=== PATIENT | male | born 1940 | race Caucasian/White ===

== ENCOUNTER 2017-11-30 10:21 | Inpatient (IN) | payer MEDICARE, OTHER ==
[2017-11-30] MEDS ORDERED: SODIUM CHLORIDE 0.9% 1,000 ML IV STA (10:25)
[2017-11-30] MEDS ORDERED: SODIUM CHLORIDE 0.9% 500 ML IV STA (10:25)
--- NOTE | 2017-11-30 10:28 | ED ---
Altered Mental Status HPI - General Stated Complaint: POSS DEHYDRATION Time Seen by Provider: 11/30/17 10:21 Source: patient, RN/MD, EMS, RN notes reviewed, old records reviewed Mode of arrival: EMS - History of Present Illness Initial Comments: This is a 77-year-old male who was brought in for evaluation for lethargy that apparently did start yesterday to decrease oral intake. Lab work he was found have a BUN of 136 and creatinine of 4.3 which is new for him. No fevers chills sweats no nausea no vomiting diarrhea. Patient did refuse nasal oxygen offered by EMS. He was given 1 L of fluids and route. He is noted be dehydrated. MD Complaint: decreased responsiveness, weakness - Related Data Home Medications Medication Instructions Recorded Confirmed Acetaminophen Tab [Tylenol Tab] 650 mg PO DAILY@1200 11/30/17 11/30/17 Aspirin EC [Ecotrin Low Dose] 81 mg PO DAILY@1700 11/30/17 11/30/17 Atorvastatin [Lipitor] 10 mg PO DAILY@1700 11/30/17 11/30/17 Cholecalciferol [Vitamin D3] 4,000 unit PO DAILY@1700 11/30/17 11/30/17 Dextromethorphan HBr/Quinidine 1 cap PO Q12H 11/30/17 11/30/17 [Nuedexta 20-10 mg Capsule] Diclofenac Sodium [Voltaren Gel] 1 gram TOPICAL QID PRN 11/30/17 11/30/17 Dutasteride/Tamsulosin HCl [Hemalatha 1 cap PO DAILY 11/30/17 11/30/17 0.5-0.4 mg Capsule] Exenatide Microspheres [Bydureon 2 mg SQ TH 11/30/17 11/30/17 Pen] Ferrous Sulfate [Feosol] 325 mg PO BID 11/30/17 11/30/17 Furosemide [Lasix] 40 mg PO BID@0800,1200 11/30/17 11/30/17 HYDROcodone/APAP 10-325MG [[place] 1 tab PO BID 11/30/17 11/30/17 10-325] HYDROcodone/APAP 10-325MG [[place] 1 tab PO Q6HR PRN 11/30/17 11/30/17 10-325] Insulin Aspart [NovoLOG Flexpen] 3 units SQ HS 11/30/17 11/30/17 Insulin Aspart [NovoLOG Flexpen] 5 units SQ AC-TID 11/30/17 11/30/17 Insulin Glargine [Lantus] 68 unit SQ HS@2130 11/30/17 11/30/17 Lisinopril [Zestril] 10 mg PO DAILY 11/30/17 11/30/17 Loperamide HCl [Imodium A-D] 2 mg PO Q12H PRN 11/30/17 11/30/17 Mag Hydrox/Al Hydrox/Simeth 15 ml PO DAILY PRN 11/30/17 11/30/17 [Maalox] Metoprolol Tartrate [Lopressor] 50 mg PO BID@0800,1700 11/30/17 11/30/17 Multivitamins, Thera [Multivitamin 1 tab PO DAILY 11/30/17 11/30/17 (formulary)] Nystatin 100,000Unit/gm Cream 1 applic TOPICAL TID 11/30/17 11/30/17 [Mycostatin Cream] QUEtiapine [SEROquel] 100 mg PO TID 11/30/17 11/30/17 Sertraline [Zoloft] 50 mg PO DAILY 11/30/17 11/30/17 Topiramate [Topamax] 200 mg PO BID@0800,1700 11/30/17 11/30/17 Allergies Allergy/AdvReac Type Severity Reaction Status Date / Time No Known Allergies Allergy Unverified 11/30/17 10:33 Review of Systems ROS Statement: Those systems with pertinent positive or pertinent negative responses have been documented in the HPI. ROS Other: All systems not noted in ROS Statement are negative. General Exam - General Exam Comments Initial Comments: This is a well-developed well-nourished awake but lethargic male General appearance: alert, lethargic Head exam: Present: atraumatic, normocephalic, normal inspection Eye exam: Present: normal appearance, PERRL, EOMI. Absent: scleral icterus, conjunctival injection, periorbital swelling ENT exam: Present: mucous membranes dry Neck exam: Present: normal inspection. Absent: tenderness, meningismus, lymphadenopathy Respiratory exam: Present: normal lung sounds bilaterally. Absent: respiratory distress, wheezes, rales, rhonchi, stridor Cardiovascular Exam: Present: regular rate, normal rhythm, normal heart sounds. Absent: systolic murmur, diastolic murmur, rubs, gallop, clicks GI/Abdominal exam: Present: soft, normal bowel sounds. Absent: distended, tenderness, guarding, rebound, rigid Extremities exam: Present: full ROM, normal capillary refill, other (Stasis dermatitis). Absent: tenderness, pedal edema, joint swelling, calf tenderness Back exam: Present: normal inspection Neurological exam: Present: alert, altered, CN II-XII intact Psychiatric exam: Present: normal affect, normal mood Skin exam: Present: warm, dry, intact. Absent: rash Course Vital Signs 11/30/17 10:22 Temperature 97 F L Pulse Rate 109 H Respiratory 18 Rate Blood Pressure 156/60 O2 Sat by Pulse 98 Oximetry Medical Decision Making - Medical Decision Making Patient will be admitted I did discuss case with the family patient will be admitted with evaluation by nephrology for acute renal failure - Lab Data Result diagrams: 11/30/17 10:35 11/30/17 10:35 Lab Results 11/30/17 11/30/17 11/30/17 Range/Units 10:35 10:35 10:35 WBC 12.2 H (3.8-10.6) k/uL RBC 3.49 L (4.30-5.90) m/uL Hgb 11.1 L (13.0-17.5) gm/dL Hct 34.3 L (39.0-53.0) % MCV 98.3 (80.0-100.0) fL MCH 31.9 (25.0-35.0) pg MCHC 32.4 (31.0-37.0) g/dL RDW 13.9 (11.5-15.5) % Plt Count 236 (150-450) k/uL Neutrophils % 75 % Lymphocytes % 18 % Monocytes % 3 % Eosinophils % 2 % Basophils % 0 % Neutrophils # 9.1 H (1.3-7.7) k/uL Lymphocytes # 2.2 (1.0-4.8) k/uL Monocytes # 0.4 (0-1.0) k/uL Eosinophils # 0.3 (0-0.7) k/uL Basophils # 0.1 (0-0.2) k/uL Sodium 150 H (137-145) mmol/L Potassium 5.6 H (3.5-5.1) mmol/L Chloride 118 H (98-107) mmol/L Carbon Dioxide 15 L (22-30) mmol/L Anion Gap 17 mmol/L BUN 119 H* (9-20) mg/dL Creatinine 3.40 H (0.66-1.25) mg/dL Est GFR (CKD-EPI)AfAm 19 (>60 ml/min/1.73 sqM) Est GFR (CKD-EPI)NonAf 16 (>60 ml/min/1.73 sqM) Glucose 121 H (74-99) mg/dL Calcium 9.2 (8.4-10.2) mg/dL Magnesium 1.8 (1.6-2.3) mg/dL Total Bilirubin 0.3 (0.2-1.3) mg/dL AST 86 H (17-59) U/L ALT 44 (21-72) U/L Alkaline Phosphatase 115 (38-126) U/L Ammonia (<30) umol/L Total Creatine Kinase 1082 H (55-170) U/L CK-MB (CK-2) 89.6 H* (0.0-2.4) ng/mL CK-MB (CK-2) Rel Index 8.3 Total Protein 6.8 (6.3-8.2) g/dL Albumin 3.3 L (3.5-5.0) g/dL Urine Color Urine Appearance (Clear) Urine pH (5.0-8.0) Ur Specific [place] (1.001-1.035) Urine Protein (Negative) Urine Glucose (UA) (Negative) Urine Ketones (Negative) Urine Blood (Negative) Urine Nitrite (Negative) Urine Bilirubin (Negative) Urine Urobilinogen (<2.0) mg/dL Ur Leukocyte Esterase (Negative) Urine RBC (0-5) /hpf Urine WBC (0-5) /hpf Urine WBC Clumps (None) /hpf Ur Squamous Epith Cells (0-4) /hpf Urine Bacteria (None) /hpf Granular Casts (0) /lpf Urine Mucus (None) /hpf 11/30/17 11/30/17 Range/Units 11:10 11:18 WBC (3.8-10.6) k/uL RBC (4.30-5.90) m/uL Hgb (13.0-17.5) gm/dL Hct (39.0-53.0) % MCV (80.0-100.0) fL MCH (25.0-35.0) pg MCHC (31.0-37.0) g/dL RDW (11.5-15.5) % Plt Count (150-450) k/uL Neutrophils % % Lymphocytes % % Monocytes % % Eosinophils % % Basophils % % Neutrophils # (1.3-7.7) k/uL Lymphocytes # (1.0-4.8) k/uL Monocytes # (0-1.0) k/uL Eosinophils # (0-0.7) k/uL Basophils # (0-0.2) k/uL Sodium (137-145) mmol/L Potassium (3.5-5.1) mmol/L Chloride (98-107) mmol/L Carbon Dioxide (22-30) mmol/L Anion Gap mmol/L BUN (9-20) mg/dL Creatinine (0.66-1.25) mg/dL Est GFR (CKD-EPI)AfAm (>60 ml/min/1.73 sqM) Est GFR (CKD-EPI)NonAf (>60 ml/min/1.73 sqM) Glucose (74-99) mg/dL Calcium (8.4-10.2) mg/dL Magnesium (1.6-2.3) mg/dL Total Bilirubin (0.2-1.3) mg/dL AST (17-59) U/L ALT (21-72) U/L Alkaline Phosphatase (38-126) U/L Ammonia 18 (<30) umol/L Total Creatine Kinase (55-170) U/L CK-MB (CK-2) (0.0-2.4) ng/mL CK-MB (CK-2) Rel Index Total Protein (6.3-8.2) g/dL Albumin (3.5-5.0) g/dL Urine Color Light Yellow Urine Appearance Cloudy (Clear) Urine pH 6.0 (5.0-8.0) Ur Specific [place] 1.011 (1.001-1.035) Urine Protein Trace H (Negative) Urine Glucose (UA) Negative (Negative) Urine Ketones Negative (Negative) Urine Blood Moderate H (Negative) Urine Nitrite Negative (Negative) Urine Bilirubin Negative (Negative) Urine Urobilinogen <2.0 (<2.0) mg/dL Ur Leukocyte Esterase Large H (Negative) Urine RBC 4 (0-5) /hpf Urine WBC 114 H (0-5) /hpf Urine WBC Clumps Many H (None) /hpf Ur Squamous Epith Cells 3 (0-4) /hpf Urine Bacteria Many H (None) /hpf Granular Casts 7 (0) /lpf Urine Mucus Rare H (None) /hpf - Radiology Data Radiology results: image reviewed (Imaging shows evidence of cardiomegaly and suspicion of CHF) Disposition Clinical Impression: Acute renal failure (ARF) Disposition: ADMITTED IP TO THIS HOSP Condition: Serious Referrals: Dmitry Romero MD [Primary Care Provider] - 1-2 days
[2017-11-30 11:06] LABS: Basophils # (A) 0.1 k/uL (0-0.2); Basophils % (A) 0 %; Eosinophils # (A) 0.3 k/uL (0-0.7); Eosinophils % (A) 2 %; HCT 34.3 % (39.0-53.0); HGB 11.1 gm/dL (13.0-17.5); Lymphocytes # (A) 2.2 k/uL (1.0-4.8); Lymphocytes % (A) 18 %; MCH 31.9 pg (25.0-35.0); MCHC 32.4 g/dL (31.0-37.0); MCV 98.3 fL (80.0-100.0); Mean Platelet Volume 7.6; Monocytes # (A) 0.4 k/uL (0-1.0); Monocytes % (A) 3 %; Neutrophils # (A) 9.1 k/uL (1.3-7.7); Neutrophils % (A) 75 %; Platelet Count 236 k/uL (150-450); RBC 3.49 m/uL (4.30-5.90); RDW 13.9 % (11.5-15.5); WBC 12.2 k/uL (3.8-10.6)
[2017-11-30 11:14] LABS: Albumin 3.3 g/dL (3.5-5.0); Calcium 9.2 mg/dL (8.4-10.2); Magnesium 1.8 mg/dL (1.6-2.3); Potassium 5.6 mmol/L (3.5-5.1); Total Bilirubin 0.3 mg/dL (0.2-1.3); Total Protein 6.8 g/dL (6.3-8.2)
[2017-11-30 11:38] LABS: Appearance,Urine Cloudy (Clear); Bacteria,Urine Many /hpf; Bilirubin,Urine Negative (Negative); Blood,Urine Moderate (Negative); Color,Urine Light Yellow; Glucose,Urine (UA) Negative (Negative); Granular Casts,Urine 7 /lpf (0); Ketones,Urine Negative (Negative); Leukocyte Esterase,Urine Large (Negative); Mucus,Urine Rare /hpf; Nitrite,Urine Negative (Negative); Protein,Urine Trace (Negative); RBC,Urine 4 /hpf (0-5); Specific Gravity,Urine 1.011 (1.001-1.035); Squamous Epithelial Cell,Urine 3 /hpf (0-4); Urobilinogen,Urine <2.0 mg/dL (<2.0); WBC,Urine 114 /hpf (0-5)
[2017-11-30 11:39] LABS: Creatine Kinase MB 89.6 ng/mL (0.0-2.4)
[2017-11-30] MEDS ORDERED: ACETAMINOPHEN IV (For NPO) 1,000 MG in SALINE 1 100ML.BAG IVPB STA (11:41)
--- NOTE | 2017-11-30 12:03 | XR ---
EXAMINATION TYPE: XR chest 2V DATE OF EXAM: 11/30/2017 COMPARISON: NONE HISTORY: Cough per order. Weakness. TECHNIQUE: Frontal and lateral views of the chest are obtained. FINDINGS: The osseous structures remain demineralized. 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 There is low lung volumes with cardiomegaly and moderate central vascular congestion as well as interstitial edema. No large pleural effusion or pneumothorax is identified. Ch olecystectomy clips are appreciated on lateral view. IMPRESSION: Suspect CHF exacerbation as there is cardiomegaly with moderate central congestion and m ild to moderate peripheral interstitial edema noted. Correlate clinically.
[2017-11-30] MEDS ORDERED: NALOXONE 0.4 MG/ML 1 ML VIAL IV PRN (13:14)
[2017-11-30] MEDS ORDERED: LOPERAMIDE 2 MG CAP PO PRN (13:17)
[2017-11-30] MEDS ORDERED: DICLOFENAC SODIUM GEL 100 GM TUBE TOPICAL PRN (13:17)
[2017-11-30] MEDS ORDERED: MAG HYDROX/AL HYDROX/SIMETH 30 ML CUP PO PRN (13:17)
[2017-11-30] MEDS ORDERED: EXENATIDE MICROSPHERES 2 MG SQ SCH (13:30)
[2017-11-30] MEDS: CHOLECALCIFEROL 1,000 UNIT TAB PO SCH (15:56)
[2017-11-30] MEDS: QUEtiapine 100 MG TAB PO SCH ×2 (15:56→20:41)
[2017-11-30] MEDS: ATORVASTATIN 10 MG TAB PO SCH (15:56)
[2017-11-30] MEDS: METOPROLOL TARTRATE 50 MG TAB PO SCH (15:56)
[2017-11-30] MEDS: NYSTATIN 100,000UNIT/GM CREAM 30 GM TUBE TOPICAL SCH ×2 (15:56→20:41)
[2017-11-30] MEDS: ASPIRIN 81 MG PO SCH (15:56)
[2017-11-30 17:15] LABS: Glucose,Whole Blood 140 mg/dL (75-99)
[2017-11-30] MEDS: DEXTROSE 5% IN WATER 1,000 ML with SODIUM BICARB (1 MEQ/ML) 100 ML IV SCH (17:33)
[2017-11-30] MEDS: INSULIN ASPART 100 UNIT/ML 1 ML 10 ML VIAL SQ SCH ×2 (17:36→21:35)
[2017-11-30] MEDS: FERROUS SULFATE 325 MG TAB PO SCH (20:41)
[2017-11-30 20:57] LABS: Glucose,Whole Blood 182 mg/dL (75-99)
[2017-11-30] MEDS: DEXTROMETHORPHAN HBR PO SCH (21:36)
[2017-11-30] MEDS: QUINIDINE PO SCH (21:36)
[2017-11-30] MEDS: INSULIN DETEMIR 100 UNIT/ML 10 ML VIAL SQ SCH (21:38)
[2017-12-01] MEDS: HYDROcodone/APAP 10-325MG 1 EACH TAB PO PRN (02:31)
[2017-12-01] MEDS: DEXTROSE 5% IN WATER 1,000 ML with SODIUM BICARB (1 MEQ/ML) 100 ML IV SCH ×2 (06:11→09:40)
[2017-12-01 07:09] LABS: Glucose,Whole Blood 104 mg/dL (75-99)
[2017-12-01] MEDS ORDERED: FUROSEMIDE 40 MG TAB PO SCH (08:00)
[2017-12-01] MEDS: FERROUS SULFATE 325 MG TAB PO SCH ×2 (08:30→21:22)
[2017-12-01] MEDS: TAMSULOSIN 0.4 MG CAP.ER.24H PO SCH (08:30)
[2017-12-01] MEDS: METOPROLOL TARTRATE 50 MG TAB PO SCH ×3 (08:30→17:28)
[2017-12-01] MEDS: QUEtiapine 100 MG TAB PO SCH ×3 (08:30→21:22)
[2017-12-01] MEDS: FINASTERIDE 5 MG TAB PO SCH (08:30)
[2017-12-01] MEDS: SERTRALINE 50 MG TAB PO SCH (08:30)
[2017-12-01] MEDS: DEXTROMETHORPHAN HBR PO SCH ×2 (08:31→21:23)
[2017-12-01] MEDS: QUINIDINE PO SCH ×2 (08:31→21:23)
[2017-12-01] MEDS: INSULIN ASPART 100 UNIT/ML 1 ML 10 ML VIAL SQ SCH ×4 (08:31→21:22)
[2017-12-01] MEDS ORDERED: DUTASTERIDE PO SCH (09:00)
[2017-12-01] MEDS ORDERED: TAMSULOSIN HCL PO SCH (09:00)
[2017-12-01 09:25] LABS: Basophils % (A) 0 %; Eosinophils # (A) 0.1 k/uL (0-0.7); Eosinophils % (A) 1 %; HCT 34.1 % (39.0-53.0); HGB 10.8 gm/dL (13.0-17.5); Lymphocytes # (A) 1.8 k/uL (1.0-4.8); Lymphocytes % (A) 17 %; MCH 31.6 pg (25.0-35.0); MCHC 31.7 g/dL (31.0-37.0); MCV 99.7 fL (80.0-100.0); Mean Platelet Volume 8.1; Monocytes # (A) 0.6 k/uL (0-1.0); Monocytes % (A) 5 %; Neutrophils # (A) 8.3 k/uL (1.3-7.7); Neutrophils % (A) 76 %; Platelet Count 226 k/uL (150-450); RBC 3.42 m/uL (4.30-5.90); RDW 13.8 % (11.5-15.5)
[2017-12-01] MEDS: NYSTATIN 100,000UNIT/GM CREAM 30 GM TUBE TOPICAL SCH ×3 (09:35→21:23)
[2017-12-01] MEDS: cefTRIAXone IN SWFI 1,000 MG/10 ML SYRINGE IVP SCH (09:35)
[2017-12-01 09:52] LABS: Calcium 9.1 mg/dL (8.4-10.2); Potassium 4.6 mmol/L (3.5-5.1)
[2017-12-01 11:35] LABS: Glucose,Whole Blood 130 mg/dL (75-99)
--- NOTE | 2017-12-01 12:11 | US ---
EXAMINATION TYPE: US kidneys/renal and bladder DATE OF EXAM: 12/01/2017 COMPARISON: NONE CLINICAL HISTORY: renal failure. Renal failure EXAM MEASUREMENTS: Right Kidney: 10.7 x 5.8 x 4.0 cm Left Kidney: 8.7 x 4.3 x 4.4 cm Technical limitations due to patient's body habitus and large amount of overlying bowel content Right Kidney: visualized portions show no evidence of hydronephrosis Left Kidney: limited evaluation Bladder: Yi catheter seen There is no evidence for hydronephrosis at this point in time. No nephrolithiasis is seen. No lakshmi s are identified. The urinary bladder is anechoic. Bilateral ureteral jets are seen. Cortical medullary difference is maintained. IMPRESSION: There are some limitations to the exam, no hydronephrosis evident
--- NOTE | 2017-12-01 12:17 | P.HPIM ---
History of Present Illness H&P Date: 12/01/17 Chief Complaint: confusion She is a 77-year-old white male well-known to me from [facility]. He is been a patient their mind since 2013. He previously saw my partner in the office. 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 He is been having issues with anger and outbursts. This is been long-standing. He frequently refuses medications. On 11/29/2017, was contacted by the [facility] in the late evening, Jack not been eating or drinking much over the past several days. He was becoming obtunded. Stat labs were drawn and showed a significantly elevated BUN and creatinine with a slight leukocytosis. He was started on IV fluids and somewhat improved. When the labs are finally resulted in the a.m., I contact his family, and on their request sent him to the emergency room. He is hydrated evaluated. He is now resting comfortably on the floor. On suspicion of obstruction, a bladder scan found 402 mL of urine still his bladder. He has known urinary incontinence and frequently wears an adult diaper. Nephrology regarding consult. Urology consult is pending. He is been on Proscar and Flomax for several years to help with his urine issues in the past. His labs are improved this a.m. His family is at bedside. He denies any chest pains, pressures, shortness of breath, nausea, or vomiting. Review of Systems ROS unobtainable: due to mental status Past Medical History Past Medical History: Atrial Fibrillation, Dementia, Diabetes Mellitus, GERD/ Reflux, GI Bleed, Hyperlipidemia, Hypertension, Prostate Disorder, Thyroid Disorder History of Any Multi-Drug Resistant Organisms: None Reported Past Surgical History: No Surgical Hx Reported Past Psychological History: Bipolar Smoking Status: Never smoker Past Alcohol Use History: Occasional Past Drug Use History: None Reported Medications and Allergies Home Medications Medication Instructions Recorded Confirmed Type Acetaminophen Tab [Tylenol Tab] 650 mg PO DAILY@1200 11/30/17 11/30/17 History Aspirin EC [Ecotrin Low Dose] 81 mg PO DAILY@1700 11/30/17 11/30/17 History Atorvastatin [Lipitor] 10 mg PO DAILY@1700 11/30/17 11/30/17 History Cholecalciferol [Vitamin D3] 4,000 unit PO DAILY@1700 11/30/17 11/30/17 History Dextromethorphan HBr/Quinidine 1 cap PO Q12H 11/30/17 11/30/17 History [Nuedexta 20-10 mg Capsule] Diclofenac Sodium [Voltaren Gel] 1 gram TOPICAL QID PRN 11/30/17 11/30/17 History Dutasteride/Tamsulosin HCl [[place] 1 cap PO DAILY 11/30/17 11/30/17 History 0.5-0.4 mg Capsule] Exenatide Microspheres [Bydureon 2 mg SQ TH 11/30/17 11/30/17 History Pen] Ferrous Sulfate [Feosol] 325 mg PO BID 11/30/17 11/30/17 History Furosemide [Lasix] 40 mg PO BID@0800,1200 11/30/17 11/30/17 History HYDROcodone/APAP 10-325MG [[place] 1 tab PO BID 11/30/17 11/30/17 History 10-325] HYDROcodone/APAP 10-325MG [[place] 1 tab PO Q6HR PRN 11/30/17 11/30/17 History 10-325] Insulin Aspart [NovoLOG Flexpen] 3 units SQ HS 11/30/17 11/30/17 History Insulin Aspart [NovoLOG Flexpen] 5 units SQ AC-TID 11/30/17 11/30/17 History Insulin Glargine [Lantus] 68 unit SQ HS@2130 11/30/17 11/30/17 History Lisinopril [Zestril] 10 mg PO DAILY 11/30/17 11/30/17 History Loperamide HCl [Imodium A-D] 2 mg PO Q12H PRN 11/30/17 11/30/17 History Mag Hydrox/Al Hydrox/Simeth 15 ml PO DAILY PRN 11/30/17 11/30/17 History [Maalox] Metoprolol Tartrate [Lopressor] 50 mg PO BID@0800,1700 11/30/17 11/30/17 History Multivitamins, Thera [Multivitamin 1 tab PO DAILY 11/30/17 11/30/17 History (formulary)] Nystatin 100,000Unit/gm Cream 1 applic TOPICAL TID 11/30/17 11/30/17 History [Mycostatin Cream] QUEtiapine [SEROquel] 100 mg PO TID 11/30/17 11/30/17 History Sertraline [Zoloft] 50 mg PO DAILY 11/30/17 11/30/17 History Topiramate [Topamax] 200 mg PO BID@0800,1700 11/30/17 11/30/17 History Allergies Allergy/AdvReac Type Severity Reaction Status Date / Time No Known Allergies Allergy Unverified 11/30/17 10:33 Physical Exam Vitals: Vital Signs Temp Pulse Pulse Resp BP BP Pulse Ox 12/01/17 07:00 97.9 F 100 20 116/68 96 11/30/17 23:00 98.6 F 104 H 20 104/67 97 11/30/17 15:20 96.0 F L 107 H 16 91/50 98 11/30/17 14:04 97.3 F L 70 20 133/57 97 Intake and Output 11/30/17 12/01/17 12/01/17 22:59 06:59 14:59 Intake Total 750 350 Balance 750 350 Intake: Oral 750 350 Other: Voiding Method Diaper Diaper # Voids 2 4 # Bowel Movements 2 2 GENERAL: Somnolent, well-nourished and in no acute distress. HEAD: Atraumatic, normocephalic. EYES: Pupils equal round and reactive to light, extraocular movements intact, sclera anicteric, conjunctiva are normal. ENT:nares patent, oropharynx clear without exudates. Moist mucous membranes. NECK: Normal range of motion, supple without lymphadenopathy or JVD, no thyromegaly LUNGS: Breath sounds coarse with questionable rhonchi is at the bases. No wheezes rales . HEART: Regular rate and rhythm without murmurs, rubs or gallops.S1S2 Normal ABDOMEN: Soft, nontender, normoactive bowel sounds. No guarding, no rebound. No masses appreciated. Distended due to truncal obesity EXTREMITIES: Normal range of motion, no pitting. No clubbing or cyanosis. Lost 1 pedal edema, which is chronic. NEUROLOGICAL: Cranial nerves II through XII grossly intact. Normal speech, gait untestable this time due to weakness. PSYCH: Normal mood, normal affect. SKIN: Warm, Dry, normal turgor, no rashes or lesions noted. Results CBC & Chem 7: 12/01/17 08:35 12/01/17 08:35 Labs: Abnormal Lab Results - Last 24 Hours (Table) 11/30/17 11/30/17 12/01/17 Range/Units 17:11 20:53 07:06 WBC (3.8-10.6) k/uL RBC (4.30-5.90) m/uL Hgb (13.0-17.5) gm/dL Hct (39.0-53.0) % Neutrophils # (1.3-7.7) k/uL Sodium (137-145) mmol/L Chloride (98-107) mmol/L Carbon Dioxide (22-30) mmol/L BUN (9-20) mg/dL Creatinine (0.66-1.25) mg/dL Glucose (74-99) mg/dL POC Glucose (mg/dL) 140 H 182 H 104 H (75-99) mg/dL 12/01/17 12/01/17 12/01/17 Range/Units 08:35 08:35 11:25 WBC 11.0 H (3.8-10.6) k/uL RBC 3.42 L (4.30-5.90) m/uL Hgb 10.8 L (13.0-17.5) gm/dL Hct 34.1 L (39.0-53.0) % Neutrophils # 8.3 H (1.3-7.7) k/uL Sodium 147 H (137-145) mmol/L Chloride 116 H (98-107) mmol/L Carbon Dioxide 19 L (22-30) mmol/L BUN 95 H* (9-20) mg/dL Creatinine 2.35 H (0.66-1.25) mg/dL Glucose 120 H (74-99) mg/dL POC Glucose (mg/dL) 130 H (75-99) mg/dL Chest x-ray: report reviewed Thrombosis Risk Factor Assmnt - DVT/VTE Prophylaxis DVT/VTE Prophylaxis: Mechanical Prophylaxis ordered - Choose All That Apply Any of the Below Risk Factors Present?: Yes Each Factor Represents 1 point: Obesity (BMI >25) Other Risk Factors: Yes Each Risk Factor Represents 2 Points: Patient confined to bed Each Risk Factor Represents 3 Points: Age 75 years or older Other congenital or acquired thrombophilia - If yes, enter type in comment: No Thrombosis Risk Factor Assessment Total Risk Factor Score: 6 Thrombosis Risk Factor Assessment Level: High Risk Assessment and Plan (1) Obstructive uropathy Current Visit: Yes Status: Acute Code(s): N13.9 - OBSTRUCTIVE AND REFLUX UROPATHY, UNSPECIFIED SNOMED Code(s): 0465144 (2) Atrial fibrillation Current Visit: Yes Status: Acute Code(s): I48.91 - UNSPECIFIED ATRIAL FIBRILLATION SNOMED Code(s): 82036362 (3) BPH (benign prostatic hyperplasia) Current Visit: Yes Status: Acute Code(s): N40.0 - BENIGN PROSTATIC HYPERPLASIA WITHOUT LOWER URINRY TRACT SYMP SNOMED Code(s): 880885298 (4) Pseudobulbar affect Current Visit: Yes Status: Acute Code(s): F48.2 - PSEUDOBULBAR AFFECT SNOMED Code(s): 96334871 (5) Dementia Current Visit: Yes Status: Acute Code(s): F03.90 - UNSPECIFIED DEMENTIA WITHOUT BEHAVIORAL DISTURBANCE SNOMED Code(s): 88035313 (6) CVA, old, cognitive deficits Current Visit: Yes Status: Acute Code(s): I69.319 - UNSP SYMPTOMS AND SIGNS W COGN FNCTNS FOL CEREBRAL INFRC SNOMED Code(s): 894821948 (7) Hyperlipemia Current Visit: Yes Status: Acute Code(s): E78.5 - HYPERLIPIDEMIA, UNSPECIFIED SNOMED Code(s): 21860665 (8) Diabetes Current Visit: Yes Status: Acute Code(s): E11.9 - TYPE 2 DIABETES MELLITUS WITHOUT COMPLICATIONS SNOMED Code(s): 24937126 (9) Abnormal chest xray Current Visit: Yes Status: Acute Code(s): R93.8 - ABNORMAL FINDINGS ON DIAGNOSTIC IMAGING OF BODY STRUCTURES SNOMED Code(s): 879467890 (10) Acute renal failure (ARF) Current Visit: Yes Status: Acute Code(s): N17.9 - ACUTE KIDNEY FAILURE, UNSPECIFIED SNOMED Code(s): 78891546 Plan: I will consult nephrology and urology. I will place on Rocephin due to his white count repeat chest x-ray in the morning. Yi catheter is now in place. We'll follow his labs. I'll restart most of his home medications. Reevaluate him in next 24 hours.
[2017-12-01] MEDS: MULTIVITAMINS, THERA 1 EACH TAB PO SCH (12:34)
[2017-12-01] MEDS: ACETAMINOPHEN TAB 325 MG TAB PO SCH (12:34)
--- NOTE | 2017-12-01 13:27 | P.NPCON ---
History of Present Illness - Reason for Consult acute renal failure, hypernatremia - History of Present Illness Reason for consultation: Acute kidney injury and hypernatremia History of present illness: Patient is a 77-year-old male seen in renal consultation for acute kidney injury and hypernatremia. Patient presented from care home with generalized weakness along with poor oral intake. He had blood work done and was noted to be in acute kidney injury and was sent to the hospital for further care. His creatinine on admission was 3.4 and he is currently receiving D5W with 2 A of bicarbonate running at 100 mL an hour. Creatinine is down to 2.35 today. BUN is also trending down. Patient was noted to be acidotic with a bicarbonate level of 15 which is up to 19. Potassium level is also normalizing. Renal ultrasound revealed no evidence of hydronephrosis. Patient was also noted to be in urinary retention and initially required straight catheterization. Yi catheter had to be placed this morning. He is nonoliguric. No hematuria or dysuria. Denies use of NSAIDs. Oral intake is gradually improving. Hemodynamically stable. Vital signs are stable. General: The patient appeared well nourished and normally developed. HEENT: Head exam is unremarkable. Neck is without jugular venous distension. LUNGS: Lungs are clear to auscultation and percussion. Breath sounds decreased. HEART: Rate and Rhythm are regular. First and second heart sounds normal. No murmurs, rubs or gallops. ABDOMEN: Abdominal exam reveals normal bowel sounds. Non-tender and non- distended. No evidence of peritonitis. EXTREMITITES: No clubbing, cyanosis, or edema. Past Medical History Past Medical History: Atrial Fibrillation, Dementia, Diabetes Mellitus, GERD/ Reflux, GI Bleed, Hyperlipidemia, Hypertension, Prostate Disorder, Thyroid Disorder History of Any Multi-Drug Resistant Organisms: None Reported Past Surgical History: No Surgical Hx Reported Past Psychological History: Bipolar Smoking Status: Never smoker Past Alcohol Use History: Occasional Past Drug Use History: None Reported Medications and Allergies Home Medications Medication Instructions Recorded Confirmed Type Acetaminophen Tab [Tylenol Tab] 650 mg PO DAILY@1200 11/30/17 11/30/17 History Aspirin EC [Ecotrin Low Dose] 81 mg PO DAILY@0 11/30/17 11/30/17 History Atorvastatin [Lipitor] 10 mg PO DAILY@169911/30/17 11/30/17 History Cholecalciferol [Vitamin D3] 4,000 unit PO DAILY@1700 11/30/17 11/30/17 History Dextromethorphan HBr/Quinidine 1 cap PO Q12H 11/30/17 11/30/17 History [Nuedexta 20-10 mg Capsule] Diclofenac Sodium [Voltaren Gel] 1 gram TOPICAL QID PRN 11/30/17 11/30/17 History Dutasteride/Tamsulosin HCl [Hemalatha 1 cap PO DAILY 11/30/17 11/30/17 History 0.5-0.4 mg Capsule] Exenatide Microspheres [Bydureon 2 mg SQ TH 11/30/17 11/30/17 History Pen] Ferrous Sulfate [Feosol] 325 mg PO BID 11/30/17 11/30/17 History Furosemide [Lasix] 40 mg PO BID@0800,1200 11/30/17 11/30/17 History HYDROcodone/APAP 10-325MG [Ada 1 tab PO BID 11/30/17 11/30/17 History 10-325] HYDROcodone/APAP 10-325MG [Ada 1 tab PO Q6HR PRN 11/30/17 11/30/17 History 10-325] Insulin Aspart [NovoLOG Flexpen] 3 units SQ HS 11/30/17 11/30/17 History Insulin Aspart [NovoLOG Flexpen] 5 units SQ AC-TID 11/30/17 11/30/17 History Insulin Glargine [Lantus] 68 unit SQ HS@2130 11/30/17 11/30/17 History Lisinopril [Zestril] 10 mg PO DAILY 11/30/17 11/30/17 History Loperamide HCl [Imodium A-D] 2 mg PO Q12H PRN 11/30/17 11/30/17 History Mag Hydrox/Al Hydrox/Simeth 15 ml PO DAILY PRN 11/30/17 11/30/17 History [Maalox] Metoprolol Tartrate [Lopressor] 50 mg PO BID@0800,1700 11/30/17 11/30/17 History Multivitamins, Thera [Multivitamin 1 tab PO DAILY 11/30/17 11/30/17 History (formulary)] Nystatin 100,000Unit/gm Cream 1 applic TOPICAL TID 11/30/17 11/30/17 History [Mycostatin Cream] QUEtiapine [SEROquel] 100 mg PO TID 11/30/17 11/30/17 History Sertraline [Zoloft] 50 mg PO DAILY 11/30/17 11/30/17 History Topiramate [Topamax] 200 mg PO BID@0800,1700 11/30/17 11/30/17 History Allergies Allergy/AdvReac Type Severity Reaction Status Date / Time No Known Allergies Allergy Unverified 11/30/17 10:33 Physical Exam Vitals: Vital Signs Temp Pulse Pulse Resp BP BP Pulse Ox 12/01/17 07:00 97.9 F 100 20 116/68 96 11/30/17 23:00 98.6 F 104 H 20 104/67 97 11/30/17 15:20 96.0 F L 107 H 16 91/50 98 11/30/17 14:04 97.3 F L 70 20 133/57 97 Intake and Output 11/30/17 12/01/17 12/01/17 22:59 06:59 14:59 Intake Total 750 350 Balance 750 350 Intake: Oral 750 350 Other: Voiding Method Diaper Diaper # Voids 2 4 # Bowel Movements 2 2 Results - Lab Results Most recent lab results Calcium 9.1 mg/dL (8.4-10.2) 12/01/17 08:35 Magnesium 1.8 mg/dL (1.6-2.3) 11/30/17 10:35 12/01/17 08:35 12/01/17 08:35 Assessment and Plan Plan: Assessment: 1. Nonoliguric acute kidney injury mostly prerenal due to poor oral intake and further worsened with the use of RAI inhibitor and diuretics. Improving with IV hydration. Creatinine was 3.4 on admission and is down to 2.35 today. No evidence of hydronephrosis noted on renal ultrasound. Urinary retention also contributing factor. 2. Urinary retention status post Yi catheter placement this morning. 3. Hyperkalemia secondary to acute kidney injury and metabolic acidosis. Improved. 4. Metabolic acidosis secondary to acute kidney injury. Improving. 5. Hypernatremia secondary to lack of oral water intake. Improving with hypotonic fluid infusion. 6. Chronic kidney disease. Baseline creatinine appears to be in the range of 1.5-1.7. Etiology is diabetic kidney disease. 7. Insulin-dependent diabetes mellitus. 8. Pyuria. Urine culture pending. Maintained on IV Rocephin. Plan: Continue D5W with 2 amps of bicarb to be run at 100 mL an hour for another day. Maintain Yi catheter. Encourage oral intake, including free water. Avoid nephrotoxic agents and hypotensive episodes. Diuretics and RAI inhibitor held. Repeat electrolytes in the morning. Thank you for the consultation. I will continue to follow the patient with you during his hospital stay.
--- NOTE | 2017-12-01 14:35 | CDI ---
Last Revision, June 2017 Documentation Clarification Form Date: December 01, 2017 From: Aysha Paniagua RN Admit Date: 11/30/2017 1:18:00 PM Patient Name: Jack Arreola Visit Number: [id number] ATTENTION: The Clinical Documentation Specialists (CDI) and [facility] Coding Staff appreciate your assistance in clarifying documentation. Please respond to the clarification below the line at the bottom and electronically sign. The CDI & [facility] Coding staff will review the response and follow-up if needed. Please note: Queries are made part of the Legal Health Record. If you have any questions, please contact the author of this message via ITS. Dr. Pedro Luis Smith, CKD has been documented and requires further specificity: History/Risk Factors: A FIB, dementia, DM, GERD, GI BLEED, hyperlipidemia, HTN, prostate disorder , thyroid disorder, bipolar, smoker presents with confusion and dehydration Clinical Indicators: On admission : BUN 119, CR 3.40, GFR 16 Patients Baseline: CR 1.5 - 1.7 Nephrology consult 12/01: Chronic kidney disease. Baseline creatinine appears to be in the range of 1.5-1.7. Etiology is diabetic kidney disease. Treatment: Monitor labs Lasix 40 PO daily In order to capture the severity of condition, please clarify if the condition signifies: CKD Stage 3 (GFR 30-59) CKD Stage 4 (GFR 15-29) CKD Stage 5 (GFR <15) Other, please specify Unable to determine Please continue to document in your progress notes and discharge summary in order to capture severity of illness and risk of mortality. Include clinical findings that support your diagnosis. MTDD
[2017-12-01 17:19] LABS: Glucose,Whole Blood 125 mg/dL (75-99)
[2017-12-01] MEDS: CHOLECALCIFEROL 1,000 UNIT TAB PO SCH (17:26)
[2017-12-01] MEDS: ASPIRIN 81 MG PO SCH (17:26)
[2017-12-01] MEDS: ATORVASTATIN 10 MG TAB PO SCH (17:26)
--- NOTE | 2017-12-01 17:49 | P.GSCN ---
History of Present Illness Consult date: 12/01/17 Reason for Consult: Urinary retention History of present illness: The patient is a 77-year-old male admitted for evaluation of progressive weakness and acute renal failure. He apparently had a poor oral intake prior to admission and was noted to have a BUN of 136 and 4.3 as an outpatient. When evaluated in the emergency room on 11/30 his BUN was 119 and his creatinine was 3.4. He was acidotic with a bicarbonate 15 and sodium was 150. He has been treated with IV fluids and his mentation has improved somewhat. Renal ultrasound was obtained and showed no evidence of hydronephrosis. A bladder scan was performed this morning and showed a postvoid residual of 402 mL and a Yi catheter was inserted. 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 He says he's been wearing briefs for years and does not actually use a commode or urinal on most occasions. He had been taking Flomax and Proscar prior to admission. He says his bowels have been moving fairly normally and he did have a bowel movement earlier today. Review of Systems - Constitutional Reports lethargy, Reports weakness - Cardiovascular Denies shortness of breath - Gastrointestinal Denies abdominal pain, Denies constipation - Genitourinary Reports as per HPI Past Medical History Past Medical History: Atrial Fibrillation, Dementia, Diabetes Mellitus, GERD/ Reflux, GI Bleed, Hyperlipidemia, Hypertension, Prostate Disorder, Thyroid Disorder History of Any Multi-Drug Resistant Organisms: None Reported Past Surgical History: No Surgical Hx Reported, Coronary Bypass/CABG, Joint Replacement (Right hip replacement or a pair of right hip fracture) Past Psychological History: Bipolar Smoking Status: Never smoker Past Alcohol Use History: Occasional Past Drug Use History: None Reported Medications and Allergies Home Medications Medication Instructions Recorded Confirmed Type Acetaminophen Tab [Tylenol Tab] 650 mg PO DAILY@1200 11/30/17 11/30/17 History Aspirin EC [Ecotrin Low Dose] 81 mg PO DAILY@0 11/30/17 11/30/17 History Atorvastatin [Lipitor] 10 mg PO DAILY@169911/30/17 11/30/17 History Cholecalciferol [Vitamin D3] 4,000 unit PO DAILY@0 11/30/17 11/30/17 History Dextromethorphan HBr/Quinidine 1 cap PO Q12H 11/30/17 11/30/17 History [Nuedexta 20-10 mg Capsule] Diclofenac Sodium [Voltaren Gel] 1 gram TOPICAL QID PRN 11/30/17 11/30/17 History Dutasteride/Tamsulosin HCl [Hemalatha 1 cap PO DAILY 11/30/17 11/30/17 History 0.5-0.4 mg Capsule] Exenatide Microspheres [Bydureon 2 mg SQ TH 11/30/17 11/30/17 History Pen] Ferrous Sulfate [Feosol] 325 mg PO BID 11/30/17 11/30/17 History Furosemide [Lasix] 40 mg PO BID@0800,1200 11/30/17 11/30/17 History HYDROcodone/APAP 10-325MG [Driver 1 tab PO BID 11/30/17 11/30/17 History 10-325] HYDROcodone/APAP 10-325MG [Driver 1 tab PO Q6HR PRN 11/30/17 11/30/17 History 10-325] Insulin Aspart [NovoLOG Flexpen] 3 units SQ HS 11/30/17 11/30/17 History Insulin Aspart [NovoLOG Flexpen] 5 units SQ AC-TID 11/30/17 11/30/17 History Insulin Glargine [Lantus] 68 unit SQ HS@2130 11/30/17 11/30/17 History Lisinopril [Zestril] 10 mg PO DAILY 11/30/17 11/30/17 History Loperamide HCl [Imodium A-D] 2 mg PO Q12H PRN 11/30/17 11/30/17 History Mag Hydrox/Al Hydrox/Simeth 15 ml PO DAILY PRN 11/30/17 11/30/17 History [Maalox] Metoprolol Tartrate [Lopressor] 50 mg PO BID@0800,1700 11/30/17 11/30/17 History Multivitamins, Thera [Multivitamin 1 tab PO DAILY 11/30/17 11/30/17 History (formulary)] Nystatin 100,000Unit/gm Cream 1 applic TOPICAL TID 11/30/17 11/30/17 History [Mycostatin Cream] QUEtiapine [SEROquel] 100 mg PO TID 11/30/17 11/30/17 History Sertraline [Zoloft] 50 mg PO DAILY 11/30/17 11/30/17 History Topiramate [Topamax] 200 mg PO BID@0800,1700 11/30/17 11/30/17 History Allergies Allergy/AdvReac Type Severity Reaction Status Date / Time No Known Allergies Allergy Unverified 11/30/17 10:33 Surgical - Exam Vital Signs Temp Pulse Resp BP Pulse Ox 97 F L 109 H 18 156/60 98 11/30/17 10:22 11/30/17 10:22 11/30/17 10:22 11/30/17 10:22 11/30/17 10:22 - General well nourished, no distress, obese - Neck no masses - Respiratory normal respiratory effort - Abdomen Abdomen: soft, non tender, no organomegaly, no masses - Genitourinary normal penis with no external lesions, testicles present, other (Yi catheter is in place and is draining clear urine) - Rectum Rectum: normal sphincter tone, no tenderness, no masses, other (Prostate is 2+ enlarged and benign in consistency) Results - Labs 12/01/17 08:35 12/01/17 08:35 Abnormal Lab Results - Last 24 Hours (Table) 11/30/17 12/01/17 12/01/17 Range/Units 20:53 07:06 08:35 WBC (3.8-10.6) k/uL RBC (4.30-5.90) m/uL Hgb (13.0-17.5) gm/dL Hct (39.0-53.0) % Neutrophils # (1.3-7.7) k/uL Sodium 147 H (137-145) mmol/L Chloride 116 H (98-107) mmol/L Carbon Dioxide 19 L (22-30) mmol/L BUN 95 H* (9-20) mg/dL Creatinine 2.35 H (0.66-1.25) mg/dL Glucose 120 H (74-99) mg/dL POC Glucose (mg/dL) 182 H 104 H (75-99) mg/dL 12/01/17 12/01/17 12/01/17 Range/Units 08:35 11:25 17:17 WBC 11.0 H (3.8-10.6) k/uL RBC 3.42 L (4.30-5.90) m/uL Hgb 10.8 L (13.0-17.5) gm/dL Hct 34.1 L (39.0-53.0) % Neutrophils # 8.3 H (1.3-7.7) k/uL Sodium (137-145) mmol/L Chloride (98-107) mmol/L Carbon Dioxide (22-30) mmol/L BUN (9-20) mg/dL Creatinine (0.66-1.25) mg/dL Glucose (74-99) mg/dL POC Glucose (mg/dL) 130 H 125 H (75-99) mg/dL Diabetes panel 12/01/17 Range/Units 08:35 Sodium 147 H (137-145) mmol/L Potassium 4.6 (3.5-5.1) mmol/L Chloride 116 H (98-107) mmol/L Carbon Dioxide 19 L (22-30) mmol/L BUN 95 H* (9-20) mg/dL Creatinine 2.35 H (0.66-1.25) mg/dL Glucose 120 H (74-99) mg/dL Calcium 9.1 (8.4-10.2) mg/dL Thyroid panel 12/01/17 Range/Units 08:35 TSH 1.900 (0.465-4.680) mIU/L Calcium panel 12/01/17 Range/Units 08:35 Calcium 9.1 (8.4-10.2) mg/dL Pituitary panel 12/01/17 12/01/17 Range/Units 08:35 08:35 Sodium 147 H (137-145) mmol/L Potassium 4.6 (3.5-5.1) mmol/L Chloride 116 H (98-107) mmol/L Carbon Dioxide 19 L (22-30) mmol/L BUN 95 H* (9-20) mg/dL Creatinine 2.35 H (0.66-1.25) mg/dL Glucose 120 H (74-99) mg/dL Calcium 9.1 (8.4-10.2) mg/dL TSH 1.900 (0.465-4.680) mIU/L Adrenal panel 12/01/17 Range/Units 08:35 Sodium 147 H (137-145) mmol/L Potassium 4.6 (3.5-5.1) mmol/L Chloride 116 H (98-107) mmol/L Carbon Dioxide 19 L (22-30) mmol/L BUN 95 H* (9-20) mg/dL Creatinine 2.35 H (0.66-1.25) mg/dL Glucose 120 H (74-99) mg/dL Calcium 9.1 (8.4-10.2) mg/dL Assessment and Plan (1) Incomplete emptying of bladder Narrative/Plan: The patient does not actually have urinary retention but instead most likely has a chronically elevated post void residual. This is probably related to long -standing bladder outflow obstruction and is probably also the source of his chronic urinary incontinence. The elevated post void residual did not appear to result in hydronephrosis and the patient's renal function has improved overnight with hydration. TURP might be an option as far as his incomplete bladder emptying however the patient may continue to have urinary incontinence due to his previous CVA and impaired mobility. I will discuss this further with the patient and his once his renal function has stabilized. The patient's catheter could be removed either tomorrow or the next day but he should be followed with bladder scans to ensure that his postvoid residuals are no larger than that noted earlier this morning. Current Visit: Yes Status: Acute Code(s): R33.9 - RETENTION OF URINE, UNSPECIFIED SNOMED Code(s): 204413913
[2017-12-01 21:02] LABS: Glucose,Whole Blood 171 mg/dL (75-99)
[2017-12-01] MEDS: INSULIN DETEMIR 100 UNIT/ML 10 ML VIAL SQ SCH (21:22)
[2017-12-02] MEDS: DEXTROSE 5% IN WATER 1,000 ML with SODIUM BICARB (1 MEQ/ML) 100 ML IV SCH ×3 (06:13→21:33)
[2017-12-02] MEDS: HYDROcodone/APAP 10-325MG 1 EACH TAB PO PRN (06:15)
[2017-12-02 07:08] LABS: Glucose,Whole Blood 72 mg/dL (75-99)
[2017-12-02] MEDS: DEXTROMETHORPHAN HBR PO SCH ×2 (07:19→21:34)
[2017-12-02] MEDS: QUINIDINE PO SCH ×2 (07:19→21:34)
[2017-12-02] MEDS: cefTRIAXone IN SWFI 1,000 MG/10 ML SYRINGE IVP SCH (07:38)
[2017-12-02] MEDS: TAMSULOSIN 0.4 MG CAP.ER.24H PO SCH (07:38)
[2017-12-02] MEDS: SERTRALINE 50 MG TAB PO SCH (07:39)
[2017-12-02] MEDS: METOPROLOL TARTRATE 50 MG TAB PO SCH ×2 (07:39→16:59)
[2017-12-02] MEDS: FERROUS SULFATE 325 MG TAB PO SCH ×2 (07:39→21:23)
[2017-12-02] MEDS: INSULIN ASPART 100 UNIT/ML 1 ML 10 ML VIAL SQ SCH ×4 (07:39→21:33)
[2017-12-02] MEDS: QUEtiapine 100 MG TAB PO SCH ×3 (07:39→21:23)
[2017-12-02] MEDS: FINASTERIDE 5 MG TAB PO SCH (07:39)
[2017-12-02] MEDS: NYSTATIN 100,000UNIT/GM CREAM 30 GM TUBE TOPICAL SCH ×3 (07:39→21:24)
[2017-12-02 08:15] LABS: Basophils % (A) 0 %; Eosinophils # (A) 0.3 k/uL (0-0.7); Eosinophils % (A) 3 %; HCT 31.4 % (39.0-53.0); HGB 9.9 gm/dL (13.0-17.5); Lymphocytes # (A) 2.8 k/uL (1.0-4.8); Lymphocytes % (A) 29 %; MCH 31.5 pg (25.0-35.0); MCHC 31.6 g/dL (31.0-37.0); MCV 99.9 fL (80.0-100.0); Mean Platelet Volume 7.5; Monocytes # (A) 0.5 k/uL (0-1.0); Monocytes % (A) 5 %; Neutrophils # (A) 5.9 k/uL (1.3-7.7); Neutrophils % (A) 62 %; Platelet Count 189 k/uL (150-450); RBC 3.14 m/uL (4.30-5.90); RDW 13.9 % (11.5-15.5); WBC 9.7 k/uL (3.8-10.6)
[2017-12-02 08:30] LABS: Calcium 8.4 mg/dL (8.4-10.2); Magnesium 1.5 mg/dL (1.6-2.3); Potassium 4.2 mmol/L (3.5-5.1)
--- NOTE | 2017-12-02 09:09 | P.PN ---
Subjective Progress Note Date: 12/02/17 Principal diagnosis: This is a 77-year-old [facility] resident who was brought in with generalized weakness and decreased intake. He was an ultrasound does not show any hydronephrosis seen in consultation because of acute kidney injury and acidosis. He is found to have urinary retention and is seen by the urologist. A urine culture is so far negative. Patient is awake alert seems to be oriented 3. Denies any complaints such as shortness of breath fever chills cough nausea vomiting. He has a Yi catheter. Ultrasound does not show any hydronephrosis Objective - Vital Signs Vital signs: Vital Signs Temp 99.2 F 12/02/17 05:55 Pulse 103 H 12/02/17 05:55 Resp 16 12/02/17 05:55 BP 103/55 12/02/17 05:55 Pulse Ox 94 L 12/02/17 05:55 Intake & Output 12/01/17 12/02/17 12/02/17 18:59 06:59 18:59 Output Total 700 925 Balance -700 -925 Output: Urine 700 925 Other: Voiding Method Indwelling Catheter Indwelling Catheter Indwelling Catheter # Voids 1 Examination awake alert oriented. HEENT exam no JVP neck is supple no facial asymmetry Lungs clear to auscultation fair air entry bilaterally Heart sounds are unremarkable no murmur rub gallop, possible atrial fibrillation Abdomen is soft nontender extremity exam was moderate edema Neurologically awake alert oriented generalized weakness, difficulty sitting up - Labs CBC & Chem 7: 12/02/17 08:01 12/02/17 08:01 Labs: Abnormal Lab Results - Last 24 Hours (Table) 12/01/17 12/01/17 12/01/17 Range/Units 08:35 08:35 11:25 WBC 11.0 H (3.8-10.6) k/uL RBC 3.42 L (4.30-5.90) m/uL Hgb 10.8 L (13.0-17.5) gm/dL Hct 34.1 L (39.0-53.0) % Neutrophils # 8.3 H (1.3-7.7) k/uL Sodium 147 H (137-145) mmol/L Chloride 116 H (98-107) mmol/L Carbon Dioxide 19 L (22-30) mmol/L BUN 95 H* (9-20) mg/dL Creatinine 2.35 H (0.66-1.25) mg/dL Glucose 120 H (74-99) mg/dL POC Glucose (mg/dL) 130 H (75-99) mg/dL Magnesium (1.6-2.3) mg/dL 12/01/17 12/01/17 12/02/17 Range/Units 17:17 20:49 06:56 WBC (3.8-10.6) k/uL RBC (4.30-5.90) m/uL Hgb (13.0-17.5) gm/dL Hct (39.0-53.0) % Neutrophils # (1.3-7.7) k/uL Sodium (137-145) mmol/L Chloride (98-107) mmol/L Carbon Dioxide (22-30) mmol/L BUN (9-20) mg/dL Creatinine (0.66-1.25) mg/dL Glucose (74-99) mg/dL POC Glucose (mg/dL) 125 H 171 H 72 L (75-99) mg/dL Magnesium (1.6-2.3) mg/dL 12/02/17 12/02/17 Range/Units 08:01 08:01 WBC (3.8-10.6) k/uL RBC 3.14 L (4.30-5.90) m/uL Hgb 9.9 L (13.0-17.5) gm/dL Hct 31.4 L (39.0-53.0) % Neutrophils # (1.3-7.7) k/uL Sodium 146 H (137-145) mmol/L Chloride 110 H (98-107) mmol/L Carbon Dioxide (22-30) mmol/L BUN 77 H (9-20) mg/dL Creatinine 2.00 H (0.66-1.25) mg/dL Glucose 67 L (74-99) mg/dL POC Glucose (mg/dL) (75-99) mg/dL Magnesium 1.5 L (1.6-2.3) mg/dL Microbiology - Last 24 Hours (Table) 12/01/17 14:20 Urine Culture - Preliminary Urine,Catheterized Assessment and Plan Assessment: Impression. 1. Acute kidney injury secondary to decreased intake and urinary retention. Creatinine is improved from 3.42 this morning. 2. chronic kidney disease nephrosclerosis creatinine 1.6 baseline on 2016 but more recently has been in the 1.96 range as of 08/30/2017 3. Severe non-gap and gap acidosis, metabolic acidosis with bicarb 16 improved to 24 for now, and gap is 12. Etiology is acute kidney injury. 4. Hypotension, history of atrial fibrillation. He continues on metoprolol. Recommendation. 1. No changes in medications.. 2. Recent is on metoprolol because of atrial fibrillation
--- NOTE | 2017-12-02 10:37 | P.PN ---
Rudy Santiago is a 77-year-old white male well-known to me from [facility]. He is been a patient their mind since 2013. He previously saw my partner in the office. 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 He is been having issues with anger and outbursts. This is been long-standing. He frequently refuses medications. On 11/29/2017, was contacted by the long term in the late evening, Jack not been eating or drinking much over the past several days. He was becoming obtunded. Stat labs were drawn and showed a significantly elevated BUN and creatinine with a slight leukocytosis. He was started on IV fluids and somewhat improved. When the labs are finally resulted in the a.m., I contact his family, and on their request sent him to the emergency room. He is hydrated evaluated. He is now resting comfortably on the floor. On suspicion of obstruction, a bladder scan found 402 mL of urine still his bladder. He has known urinary incontinence and frequently wears an adult diaper. Nephrology regarding consult. Urology consult is pending. He is been on Proscar and Flomax for several years to help with his urine issues in the past. His labs are improved this a.m. His family is at bedside. He denies any chest pains, pressures, shortness of breath, nausea, or vomiting. 12/02/2017: She is doing better. is at bedside. He once again denies any chest pains pressures, shortness breath, nausea, or vomiting. He does constantly spitting up food, most likely related to his CVA. His labs are improved this morning. Consultations from nephrology and urology were reviewed. Ultrasound did not show any hydronephrosis. Urine culture is pending. Yi catheter is in place. Nephrology is treating the anabolic acidosis. Urology believes he doesn't truly have urinary retention due to his incontinence. But that the post void residual is probably a chronic long- standing outflow obstruction. He will discuss a possible TURP with the family. Her discontinuation and serial bladder scans were recommended in the next 1-2 days. Objective - Vital Signs Vital signs: Vital Signs Temp 99.2 F 12/02/17 05:55 Pulse 103 H 12/02/17 05:55 Resp 16 12/02/17 05:55 BP 103/55 12/02/17 05:55 Pulse Ox 94 L 12/02/17 05:55 Intake & Output 12/01/17 12/02/17 12/02/17 18:59 06:59 18:59 Output Total 700 925 Balance -700 -925 Output: Urine 700 925 Other: Voiding Method Indwelling Catheter Indwelling Catheter Indwelling Catheter # Voids 1 - Exam GENERAL: Somnolent, well-nourished and in no acute distress. He appears improved from 1 day ago. NECK: Normal range of motion, supple without lymphadenopathy or JVD, no thyromegaly LUNGS: Breath sounds coarse with questionable rhonchi is at the bases. No wheezes rales . HEART: Regular rate and rhythm without murmurs, rubs or gallops.S1S2 Normal ABDOMEN: Soft, nontender, normoactive bowel sounds. No guarding, no rebound. No masses appreciated. Distended due to truncal obesity EXTREMITIES: Normal range of motion, no pitting. No clubbing or cyanosis. Lost 1 pedal edema, which is chronic. NEUROLOGICAL: Cranial nerves II through XII grossly intact. Normal speech, gait untestable this time due to weakness. PSYCH: Normal mood, normal affect. SKIN: Warm, Dry, normal turgor, no rashes or lesions noted. - Labs CBC & Chem 7: 12/02/17 08:01 12/02/17 08:01 Labs: Abnormal Lab Results - Last 24 Hours (Table) 12/01/17 12/01/17 12/01/17 Range/Units 11:25 17:17 20:49 RBC (4.30-5.90) m/uL Hgb (13.0-17.5) gm/dL Hct (39.0-53.0) % Sodium (137-145) mmol/L Chloride (98-107) mmol/L BUN (9-20) mg/dL Creatinine (0.66-1.25) mg/dL Glucose (74-99) mg/dL POC Glucose (mg/dL) 130 H 125 H 171 H (75-99) mg/dL Magnesium (1.6-2.3) mg/dL 12/02/17 12/02/17 12/02/17 Range/Units 06:56 08:01 08:01 RBC 3.14 L (4.30-5.90) m/uL Hgb 9.9 L (13.0-17.5) gm/dL Hct 31.4 L (39.0-53.0) % Sodium 146 H (137-145) mmol/L Chloride 110 H (98-107) mmol/L BUN 77 H (9-20) mg/dL Creatinine 2.00 H (0.66-1.25) mg/dL Glucose 67 L (74-99) mg/dL POC Glucose (mg/dL) 72 L (75-99) mg/dL Magnesium 1.5 L (1.6-2.3) mg/dL Microbiology - Last 24 Hours (Table) 12/01/17 14:20 Urine Culture - Preliminary Urine,Catheterized Assessment and Plan (1) Obstructive uropathy Current Visit: Yes Status: Acute Code(s): N13.9 - OBSTRUCTIVE AND REFLUX UROPATHY, UNSPECIFIED SNOMED Code(s): 2680593 (2) Atrial fibrillation Current Visit: Yes Status: Acute Code(s): I48.91 - UNSPECIFIED ATRIAL FIBRILLATION SNOMED Code(s): 42028051 (3) BPH (benign prostatic hyperplasia) Current Visit: Yes Status: Acute Code(s): N40.0 - BENIGN PROSTATIC HYPERPLASIA WITHOUT LOWER URINRY TRACT SYMP SNOMED Code(s): 216423406 (4) Pseudobulbar affect Current Visit: Yes Status: Acute Code(s): F48.2 - PSEUDOBULBAR AFFECT SNOMED Code(s): 02209583 (5) Dementia Current Visit: Yes Status: Acute Code(s): F03.90 - UNSPECIFIED DEMENTIA WITHOUT BEHAVIORAL DISTURBANCE SNOMED Code(s): 10624064 (6) CVA, old, cognitive deficits Current Visit: Yes Status: Acute Code(s): I69.319 - UNSP SYMPTOMS AND SIGNS W COGN FNCTNS FOL CEREBRAL INFRC SNOMED Code(s): 414476462 (7) Hyperlipemia Current Visit: Yes Status: Acute Code(s): E78.5 - HYPERLIPIDEMIA, UNSPECIFIED SNOMED Code(s): 76402833 (8) Diabetes Current Visit: Yes Status: Acute Code(s): E11.9 - TYPE 2 DIABETES MELLITUS WITHOUT COMPLICATIONS SNOMED Code(s): 37762011 (9) Abnormal chest xray Current Visit: Yes Status: Acute Code(s): R93.8 - ABNORMAL FINDINGS ON DIAGNOSTIC IMAGING OF BODY STRUCTURES SNOMED Code(s): 338892584 (10) Acute renal failure (ARF) Current Visit: Yes Status: Acute Code(s): N17.9 - ACUTE KIDNEY FAILURE, UNSPECIFIED SNOMED Code(s): 57393501 (11) Metabolic acidosis Current Visit: Yes Status: Acute Code(s): E87.2 - ACIDOSIS SNOMED Code(s) : 79843615 Plan: We'll continue his Rocephin at this time until urine cultures are reviewed. Plan on him discontinuing his Yi catheter utilizing briefs and 48 hours. Weight on his chest x-ray for this morning. Repeat labs in a.m. We'll do further recommendations from urology and nephrology. He'll be reevaluated next 24 hours.
[2017-12-02] MEDS: ACETAMINOPHEN TAB 325 MG TAB PO SCH (11:15)
[2017-12-02] MEDS: MULTIVITAMINS, THERA 1 EACH TAB PO SCH (11:15)
[2017-12-02 12:25] LABS: Glucose,Whole Blood 82 mg/dL (75-99)
--- NOTE | 2017-12-02 12:40 | XR ---
EXAMINATION TYPE: XR chest 2V DATE OF EXAM: 12/02/2017 COMPARISON: Prior chest x-ray 11/30/2017 HISTORY: Pneumonia TECHNIQUE: Frontal and lateral views of the chest are obtained. FINDINGS: Patient is rotated, exam may be expiratory. Patient is post median sternotomy. Heart remai ns enlarged. Interstitium and central vascularity remain prominent. IMPRESSION: Correlate for pulmonary venous hypertension and interstitial edema. Follow-up is recomme nded.
[2017-12-02 17:00] LABS: Glucose,Whole Blood 106 mg/dL (75-99)
[2017-12-02] MEDS: ASPIRIN 81 MG PO SCH (17:00)
[2017-12-02] MEDS: CHOLECALCIFEROL 1,000 UNIT TAB PO SCH (17:00)
[2017-12-02] MEDS: ATORVASTATIN 10 MG TAB PO SCH (17:00)
[2017-12-02 20:43] LABS: Glucose,Whole Blood 137 mg/dL (75-99)
[2017-12-02] MEDS: INSULIN DETEMIR 100 UNIT/ML 10 ML VIAL SQ SCH (21:32)
[2017-12-03] MEDS: HYDROcodone/APAP 10-325MG 1 EACH TAB PO PRN (05:23)
[2017-12-03] MEDS: DEXTROSE 5% IN WATER 1,000 ML with SODIUM BICARB (1 MEQ/ML) 100 ML IV SCH (05:41)
[2017-12-03] MEDS: QUINIDINE PO SCH ×2 (07:19→21:19)
[2017-12-03] MEDS: DEXTROMETHORPHAN HBR PO SCH ×2 (07:19→21:19)
[2017-12-03 07:21] LABS: Glucose,Whole Blood 83 mg/dL (75-99)
[2017-12-03] MEDS: METOPROLOL TARTRATE 50 MG TAB PO SCH ×2 (07:21→16:43)
[2017-12-03] MEDS: INSULIN ASPART 100 UNIT/ML 1 ML 10 ML VIAL SQ SCH ×4 (07:21→21:14)
[2017-12-03] MEDS: FERROUS SULFATE 325 MG TAB PO SCH ×2 (07:22→21:18)
[2017-12-03] MEDS: FINASTERIDE 5 MG TAB PO SCH (07:22)
[2017-12-03] MEDS: QUEtiapine 100 MG TAB PO SCH ×3 (07:22→21:18)
[2017-12-03] MEDS: NYSTATIN 100,000UNIT/GM CREAM 30 GM TUBE TOPICAL SCH ×3 (07:22→21:19)
[2017-12-03] MEDS: cefTRIAXone IN SWFI 1,000 MG/10 ML SYRINGE IVP SCH (07:22)
[2017-12-03] MEDS: TAMSULOSIN 0.4 MG CAP.ER.24H PO SCH (07:22)
[2017-12-03] MEDS: SERTRALINE 50 MG TAB PO SCH (07:22)
--- NOTE | 2017-12-03 09:03 | P.PN ---
Rudy Santiago is a 77-year-old white male well-known to me from [facility]. He is been a patient their mind since 2013. He previously saw my partner in the office. 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 He is been having issues with anger and outbursts. This is been long-standing. He frequently refuses medications. On 11/29/2017, was contacted by the [facility]pc in the late evening, Jack not been eating or drinking much over the past several days. He was becoming obtunded. Stat labs were drawn and showed a significantly elevated BUN and creatinine with a slight leukocytosis. He was started on IV fluids and somewhat improved. When the labs are finally resulted in the a.m., I contact his family, and on their request sent him to the emergency room. He is hydrated evaluated. He is now resting comfortably on the floor. On suspicion of obstruction, a bladder scan found 402 mL of urine still his bladder. He has known urinary incontinence and frequently wears an adult diaper. Nephrology regarding consult. Urology consult is pending. He is been on Proscar and Flomax for several years to help with his urine issues in the past. His labs are improved this a.m. His family is at bedside. He denies any chest pains, pressures, shortness of breath, nausea, or vomiting. 12/02/2017: he is doing better. is at bedside. He once again denies any chest pains pressures, shortness breath, nausea, or vomiting. He does constantly spitting up food, most likely related to his CVA. His labs are improved this morning. Consultations from nephrology and urology were reviewed. Ultrasound did not show any hydronephrosis. Urine culture is pending. Yi catheter is in place. Nephrology is treating the anabolic acidosis. Urology believes he doesn't truly have urinary retention due to his incontinence. But that the post void residual is probably a chronic long- standing outflow obstruction. He will discuss a possible TURP with the family. Her discontinuation and serial bladder scans were recommended in the next 1-2 days. 12/03/2017: Patient continues to improve. He once again denies any chest pains pressures, shortness breath, nausea, or vomiting. He appears to be back at his baseline mentation. Labs are pending for this morning. Objective - Vital Signs Vital signs: Vital Signs Temp 97.9 F 12/03/17 07:00 Pulse 86 12/03/17 07:00 Resp 16 12/03/17 07:00 BP 111/49 12/03/17 07:00 Pulse Ox 94 L 12/03/17 07:00 Intake & Output 12/02/17 12/03/17 12/03/17 18:59 06:59 18:59 Intake Total 100 Output Total 800 1300 Balance -800 -1200 Intake: Oral 100 Output: Urine 800 1300 Other: Voiding Method Indwelling Catheter Indwelling Catheter Indwelling Catheter # Voids 1 # Bowel Movements 0 0 - Exam GENERAL: Awake and alert well-nourished and in no acute distress. He appears improved from 1 day ago. NECK: Normal range of motion, supple without lymphadenopathy or JVD, no thyromegaly LUNGS: Breath sounds coarse with questionable rhonchi is at the bases. No wheezes rales . HEART: Regular rate and rhythm without murmurs, rubs or gallops.S1S2 Normal ABDOMEN: Soft, nontender, normoactive bowel sounds. No guarding, no rebound. No masses appreciated. Distended due to truncal obesity EXTREMITIES: Normal range of motion, no pitting. No clubbing or cyanosis. Lost 1 pedal edema, which is chronic. NEUROLOGICAL: Cranial nerves II through XII grossly intact. Normal speech, gait untestable this time due to weakness. PSYCH: Normal mood, normal affect. SKIN: Warm, Dry, normal turgor, no rashes or lesions noted. - Labs CBC & Chem 7: 12/02/17 08:01 12/02/17 08:01 Labs: Abnormal Lab Results - Last 24 Hours (Table) 12/02/17 12/02/17 Range/Units 16:57 20:41 POC Glucose (mg/dL) 106 H 137 H (75-99) mg/dL Microbiology - Last 24 Hours (Table) 12/01/17 14:20 Urine Culture - Final Urine,Catheterized Assessment and Plan (1) Obstructive uropathy Current Visit: Yes Status: Acute Code(s): N13.9 - OBSTRUCTIVE AND REFLUX UROPATHY, UNSPECIFIED SNOMED Code(s): 7824284 (2) Atrial fibrillation Current Visit: Yes Status: Acute Code(s): I48.91 - UNSPECIFIED ATRIAL FIBRILLATION SNOMED Code(s): 15053894 (3) BPH (benign prostatic hyperplasia) Current Visit: Yes Status: Acute Code(s): N40.0 - BENIGN PROSTATIC HYPERPLASIA WITHOUT LOWER URINRY TRACT SYMP SNOMED Code(s): 932718383 (4) Pseudobulbar affect Current Visit: Yes Status: Acute Code(s): F48.2 - PSEUDOBULBAR AFFECT SNOMED Code(s): 00619293 (5) Dementia Current Visit: Yes Status: Acute Code(s): F03.90 - UNSPECIFIED DEMENTIA WITHOUT BEHAVIORAL DISTURBANCE SNOMED Code(s): 31989861 (6) CVA, old, cognitive deficits Current Visit: Yes Status: Acute Code(s): I69.319 - UNSP SYMPTOMS AND SIGNS W COGN FNCTNS FOL CEREBRAL INFRC SNOMED Code(s): 112144177 (7) Hyperlipemia Current Visit: Yes Status: Acute Code(s): E78.5 - HYPERLIPIDEMIA, UNSPECIFIED SNOMED Code(s): 04470136 (8) Diabetes Current Visit: Yes Status: Acute Code(s): E11.9 - TYPE 2 DIABETES MELLITUS WITHOUT COMPLICATIONS SNOMED Code(s): 15052389 (9) Abnormal chest xray Current Visit: Yes Status: Acute Code(s): R93.8 - ABNORMAL FINDINGS ON DIAGNOSTIC IMAGING OF BODY STRUCTURES SNOMED Code(s): 411572793 (10) Acute renal failure (ARF) Current Visit: Yes Status: Acute Code(s): N17.9 - ACUTE KIDNEY FAILURE, UNSPECIFIED SNOMED Code(s): 95373805 (11) Metabolic acidosis Current Visit: Yes Status: Acute Code(s): E87.2 - ACIDOSIS SNOMED Code(s) : 74968742 Plan: We'll continue his Rocephin at this time until urine cultures are reviewed. Plan on him discontinuing his Yi catheter on Monday morning. Wait on his chest x-ray for this morning. Repeat labs in a.m. We'll wait on further recommendations from urology and nephrology. He'll be reevaluated next 24 hours.
[2017-12-03] MEDS: ACETAMINOPHEN TAB 325 MG TAB PO SCH (11:39)
[2017-12-03] MEDS: MULTIVITAMINS, THERA 1 EACH TAB PO SCH (11:39)
[2017-12-03 12:20] LABS: Basophils % (A) 1 %; Eosinophils # (A) 0.5 k/uL (0-0.7); Eosinophils % (A) 6 %; HCT 29.3 % (39.0-53.0); HGB 9.5 gm/dL (13.0-17.5); Lymphocytes # (A) 2.6 k/uL (1.0-4.8); Lymphocytes % (A) 30 %; MCH 32.3 pg (25.0-35.0); MCHC 32.3 g/dL (31.0-37.0); MCV 99.9 fL (80.0-100.0); Mean Platelet Volume 7.8; Monocytes # (A) 0.5 k/uL (0-1.0); Monocytes % (A) 5 %; Neutrophils # (A) 4.8 k/uL (1.3-7.7); Neutrophils % (A) 57 %; Platelet Count 185 k/uL (150-450); RBC 2.93 m/uL (4.30-5.90); RDW 13.4 % (11.5-15.5); WBC 8.5 k/uL (3.8-10.6)
[2017-12-03 12:36] LABS: Calcium 8.1 mg/dL (8.4-10.2); Magnesium 1.5 mg/dL (1.6-2.3); Potassium 4.4 mmol/L (3.5-5.1)
[2017-12-03 12:50] LABS: Glucose,Whole Blood 82 mg/dL (75-99)
--- NOTE | 2017-12-03 14:21 | P.PN ---
Subjective Principal diagnosis: This is a 77-year-old [facility] resident who was brought in with generalized weakness and decreased intake. He was seen in consultation because of acute kidney injury and acidosis. He is found to have urinary retention and is seen by the urologist. A urine culture is so far negative. He has a Yi catheter with improvement in his creatinine. Urine culture is negative Patient is awake alert seems to be oriented 3. Denies any complaints such as shortness of breath fever chills cough nausea vomiting. He has a Yi catheter. Ultrasound does not show any hydronephrosis . He is a long-term resident of [facility] is awake and alert Objective - Vital Signs Vital signs: Vital Signs Temp 97.9 F 12/03/17 07:00 Pulse 86 12/03/17 07:00 Resp 16 12/03/17 07:00 BP 111/49 12/03/17 07:00 Pulse Ox 94 L 12/03/17 07:00 Intake & Output 12/02/17 12/03/17 12/03/17 18:59 06:59 18:59 Intake Total 100 Output Total 800 1300 Balance -800 -1200 Intake: Oral 100 Output: Urine 800 1300 Other: Voiding Method Indwelling Catheter Indwelling Catheter Indwelling Catheter # Voids 1 # Bowel Movements 0 0 0 On examination awake alert seems to be oriented 3 HEENT exam no JVP neck is supple no facial asymmetry Lungs are clear to auscultation good air entry bilaterally Heart sounds are unremarkable no murmur rub Abdomen is soft nontender Extremity exam was trace edema Neurologically awake alert oriented but profoundly weak - Labs CBC & Chem 7: 12/03/17 11:38 12/03/17 11:38 Labs: Abnormal Lab Results - Last 24 Hours (Table) 12/02/17 12/02/17 12/03/17 Range/Units 16:57 20:41 11:38 RBC 2.93 L (4.30-5.90) m/uL Hgb 9.5 L (13.0-17.5) gm/dL Hct 29.3 L (39.0-53.0) % BUN (9-20) mg/dL Creatinine (0.66-1.25) mg/dL POC Glucose (mg/dL) 106 H 137 H (75-99) mg/dL Calcium (8.4-10.2) mg/dL Magnesium (1.6-2.3) mg/dL 12/03/17 Range/Units 11:38 RBC (4.30-5.90) m/uL Hgb (13.0-17.5) gm/dL Hct (39.0-53.0) % BUN 53 H (9-20) mg/dL Creatinine 1.66 H (0.66-1.25) mg/dL POC Glucose (mg/dL) (75-99) mg/dL Calcium 8.1 L (8.4-10.2) mg/dL Magnesium 1.5 L (1.6-2.3) mg/dL Microbiology - Last 24 Hours (Table) 12/01/17 14:20 Urine Culture - Final Urine,Catheterized Assessment and Plan Assessment: Impression. 1. Acute kidney injury secondary to decreased intake and urinary retention. Creatinine is improved from 3.42 to 1.66 this morning . 2. chronic kidney disease nephrosclerosis creatinine 1.6 baseline on 2016 but more recently has been in the 1.96 range as of 08/30/2017 3. Severe non-gap and gap acidosis, metabolic acidosis with bicarb 16 improved to 24 for now, and gap is 12. Etiology is acute kidney injury. Resolved 4. Hypotension, history of atrial fibrillation. He continues on metoprolol 50 mg twice a day. Recommendation. 1. No changes in medications.. 2. Because of the hypotension, Consider reducing metoprolol for atrial fibrillation. 3. Monitor labs for 1 more day
[2017-12-03] MEDS: CHOLECALCIFEROL 1,000 UNIT TAB PO SCH (16:43)
[2017-12-03] MEDS: ATORVASTATIN 10 MG TAB PO SCH (16:43)
[2017-12-03] MEDS: ASPIRIN 81 MG PO SCH (16:43)
[2017-12-03 17:19] LABS: Glucose,Whole Blood 103 mg/dL (75-99)
[2017-12-03 21:03] LABS: Glucose,Whole Blood 129 mg/dL (75-99)
[2017-12-03] MEDS: INSULIN DETEMIR 100 UNIT/ML 10 ML VIAL SQ SCH (21:19)
[2017-12-04] MEDS: DEXTROSE 5% IN WATER 1,000 ML with SODIUM BICARB (1 MEQ/ML) 100 ML IV SCH ×2 (06:21→08:07)
[2017-12-04 06:52] LABS: Glucose,Whole Blood 62 mg/dL (75-99)
[2017-12-04 07:07] LABS: Glucose,Whole Blood 57 mg/dL (75-99)
[2017-12-04] MEDS: DEXTROMETHORPHAN HBR PO SCH (08:07)
[2017-12-04] MEDS: METOPROLOL TARTRATE 50 MG TAB PO SCH (08:07)
[2017-12-04] MEDS: INSULIN ASPART 100 UNIT/ML 1 ML 10 ML VIAL SQ SCH ×2 (08:07→12:20)
[2017-12-04] MEDS: QUINIDINE PO SCH (08:07)
[2017-12-04] MEDS: NYSTATIN 100,000UNIT/GM CREAM 30 GM TUBE TOPICAL SCH ×2 (08:08→15:05)
[2017-12-04] MEDS: TAMSULOSIN 0.4 MG CAP.ER.24H PO SCH (08:08)
[2017-12-04] MEDS: FERROUS SULFATE 325 MG TAB PO SCH (08:08)
[2017-12-04] MEDS: SERTRALINE 50 MG TAB PO SCH (08:08)
[2017-12-04] MEDS: QUEtiapine 100 MG TAB PO SCH (08:08)
[2017-12-04] MEDS: FINASTERIDE 5 MG TAB PO SCH (08:08)
[2017-12-04] MEDS: cefTRIAXone IN SWFI 1,000 MG/10 ML SYRINGE IVP SCH (08:11)
[2017-12-04 08:23] LABS: Glucose,Whole Blood 109 mg/dL (75-99)
[2017-12-04 10:05] LABS: Calcium 8.4 mg/dL (8.4-10.2); Magnesium 1.5 mg/dL (1.6-2.3); Potassium 4.5 mmol/L (3.5-5.1)
[2017-12-04] MEDS ORDERED: MAGNESIUM OXIDE 400 MG TAB PO STA (10:14)
--- NOTE | 2017-12-04 10:32 | P.DS ---
Providers Date of admission: 11/30/17 13:18 Expected date of discharge: 12/04/17 Attending physician: Dmitry Romero Consults: 11/30/17 13:15 Consult Physician Routine Consulting Provider: Aleisha Saavedra Consult Reason/Comments: Acute renal failure Do you want consulting provider notified?: Yes 12/01/17 09:50 Consult Physician Routine Consulting Provider: Darnell Spann Consult Reason/Comments: urine retention Do you want consulting provider notified?: Yes Primary care physician: Dmitry Romero [facility] Hospital Course: Jack is a 77-year-old white male well-known to me from [facility]. He is been a patient their mind since 2013. He previously saw my partner in the office. 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 He is been having issues with anger and outbursts. This is been long-standing. He frequently refuses medications. On 11/29/2017, was contacted by the [facility] in the late evening, Jack not been eating or drinking much over the past several days. He was becoming obtunded. Stat labs were drawn and showed a significantly elevated BUN and creatinine with a slight leukocytosis. He was started on IV fluids and somewhat improved. When the labs are finally resulted in the a.m., I contact his family, and on their request sent him to the emergency room. He is hydrated evaluated. He is now resting comfortably on the floor. On suspicion of obstruction, a bladder scan found 402 mL of urine still his bladder. He has known urinary incontinence and frequently wears an adult diaper. Nephrology regarding consult. Urology consult is pending. He is been on Proscar and Flomax for several years to help with his urine issues in the past. His labs are improved this a.m. His family is at bedside. He denies any chest pains, pressures, shortness of breath, nausea, or vomiting. 12/02/2017: he is doing better. is at bedside. He once again denies any chest pains pressures, shortness breath, nausea, or vomiting. He does constantly spitting up food, most likely related to his CVA. His labs are improved this morning. Consultations from nephrology and urology were reviewed. Ultrasound did not show any hydronephrosis. Urine culture is pending. Barnett catheter is in place. Nephrology is treating the anabolic acidosis. Urology believes he doesn't truly have urinary retention due to his incontinence. But that the post void residual is probably a chronic long- standing outflow obstruction. He will discuss a possible TURP with the family. Her discontinuation and serial bladder scans were recommended in the next 1-2 days. 12/03/2017: Patient continues to improve. He once again denies any chest pains pressures, shortness breath, nausea, or vomiting. He appears to be back at his baseline mentation. Labs are pending for this morning. 12/04/2017: The patient was seen and examined at the bedside. He is awake and alert. Mentation is at the patients baseline. Patient is stable to be discharged back to [facility] today per Dr. Romero. Lasix, lisinopril, and topamax are to remain on hold at the time of discharge due to patients kidney function. Repeat BMP in 3 days. Urinary catheter was discontinued this morning. Nursing to bladder scan the patient and if over 200cc to reinsert barnett and patient can be discharged to [facility] with catheter. DISCHARGE DIAGNOSIS: Acute kidney injury, improved Chronic kidney disease, stage III Metabolic acidosis, improved Obstructive uropathy History of atrial fibrillation BPH Pseudobulbar affect Dementia Hx of CVA Hyperlipidemia Diabetes mellitus, type II Nurse practitioner note has been reviewed by physician. Signing provider agrees with the documented findings, assessment, and plan of care. Patient Condition at Discharge: Stable Plan - Discharge Summary New Discharge Prescriptions: Continue QUEtiapine [SEROquel] 100 mg PO TID Loperamide HCl [Imodium A-D] 2 mg PO Q12H PRN PRN Reason: Loose Stool Insulin Aspart [NovoLOG Flexpen] 5 units SQ AC-TID HYDROcodone/APAP 10-325MG [Ethan 10-325] 1 tab PO BID Metoprolol Tartrate [Lopressor] 50 mg PO BID@0800,1700 Sertraline [Zoloft] 50 mg PO DAILY Ferrous Sulfate [Iron (65 MG Elemental)] 325 mg PO BID Cholecalciferol [Vitamin D3] 4,000 unit PO DAILY@1700 Insulin Aspart [NovoLOG Flexpen] 3 units SQ HS Acetaminophen Tab [Tylenol] 650 mg PO DAILY@1200 Multivitamins, Thera [Multivitamin (formulary)] 1 tab PO DAILY Atorvastatin [Lipitor] 10 mg PO DAILY@1700 Insulin Glargine [Lantus] 68 unit SQ HS@2130 Dutasteride/Tamsulosin HCl [Hemalatha 0.5-0.4 mg Capsule] 1 cap PO DAILY Exenatide Microspheres [Bydureon Pen] 2 mg SQ TH Aspirin EC [Ecotrin Low Dose] 81 mg PO DAILY@1700 Dextromethorphan HBr/Quinidine [Nuedexta 20-10 mg Capsule] 1 cap PO Q12H Nystatin 100,000Unit/gm Cream [Mycostatin Cream] 1 applic TOPICAL TID Diclofenac Sodium [Voltaren Gel] 1 gram TOPICAL QID PRN PRN Reason: Pain HYDROcodone/APAP 10-325MG [Ethan 10-325] 1 tab PO Q6HR PRN PRN Reason: Pain Mag Hydrox/Al Hydrox/Simeth [Maalox] 15 ml PO DAILY PRN PRN Reason: Heartburn Discontinued Topiramate [Topamax] 200 mg PO BID@0800,1700 Furosemide [Lasix] 40 mg PO BID@0800,1200 Lisinopril [Zestril] 10 mg PO DAILY Discharge Medication List Acetaminophen Tab [Tylenol] 650 mg PO DAILY@1200 11/30/17 [History] Aspirin EC [Ecotrin Low Dose] 81 mg PO DAILY@1700 11/30/17 [History] Atorvastatin [Lipitor] 10 mg PO DAILY@1700 11/30/17 [History] Cholecalciferol [Vitamin D3] 4,000 unit PO DAILY@1700 11/30/17 [History] Dextromethorphan HBr/Quinidine [Nuedexta 20-10 mg Capsule] 1 cap PO Q12H [History] Diclofenac Sodium [Voltaren Gel] 1 gram TOPICAL QID PRN 11/30/17 [History] Dutasteride/Tamsulosin HCl [Hemalatha 0.5-0.4 mg Capsule] 1 cap PO DAILY 11/30/17 [ History] Exenatide Microspheres [Bydureon Pen] 2 mg SQ TH 11/30/17 [History] Ferrous Sulfate [Iron (65 MG Elemental)] 325 mg PO BID 11/30/17 [History] HYDROcodone/APAP 10-325MG [Ethan 10-325] 1 tab PO BID 11/30/17 [History] HYDROcodone/APAP 10-325MG [Ethan 10-325] 1 tab PO Q6HR PRN 11/30/17 [History] Insulin Aspart [NovoLOG Flexpen] 3 units SQ HS 11/30/17 [History] Insulin Aspart [NovoLOG Flexpen] 5 units SQ AC-TID 11/30/17 [History] Insulin Glargine [Lantus] 68 unit SQ HS@2130 11/30/17 [History] Loperamide HCl [Imodium A-D] 2 mg PO Q12H PRN 11/30/17 [History] Mag Hydrox/Al Hydrox/Simeth [Maalox] 15 ml PO DAILY PRN 11/30/17 [History] Metoprolol Tartrate [Lopressor] 50 mg PO BID@0800,1700 11/30/17 [History] Multivitamins, Thera [Multivitamin (formulary)] 1 tab PO DAILY 11/30/17 [History ] Nystatin 100,000Unit/gm Cream [Mycostatin Cream] 1 applic TOPICAL TID 11/30/17 [ History] QUEtiapine [SEROquel] 100 mg PO TID 11/30/17 [History] Sertraline [Zoloft] 50 mg PO DAILY 11/30/17 [History] Follow up Appointment(s)/Referral(s): Mariano Khan, [NON-STAFF] - 1 Week Leeroy Leung MD [STAFF PHYSICIAN] - 1 Week Dmitry Romero MD [Primary Care Provider] - 1-2 days Pedro Luis Smith DO [STAFF PHYSICIAN] - 1 Week Ambulatory/Diagnostic Orders: Basic Metabolic Panel [LAB.AMB] Time Frame: 3 Days, Location: Determined By Patient Patient Instructions/Handouts: Acute Kidney Injury (DC) Activity/Diet/Wound Care/Special Instructions: Cardiac, diabetic diet. Activity as tolerated Discharge Disposition: TRANSFER TO SNF/ECF
--- NOTE | 2017-12-04 10:35 | P.PN ---
Subjective Principal diagnosis: Patient is seen in follow-up for acute kidney injury. Creatinine was 2.4 on admission and is down to 1.52 today. Oral intake is improved. He is working with physical therapy. Yi catheter has been removed. He has been voiding. Denies chest pain or shortness of breath. Vital signs are stable. General: The patient appeared well nourished and normally developed. HEENT: Head exam is unremarkable. Neck is without jugular venous distension. LUNGS: Lungs are clear to auscultation and percussion. Breath sounds decreased. HEART: Rate and Rhythm are regular. First and second heart sounds normal. No murmurs, rubs or gallops. ABDOMEN: Abdominal exam reveals normal bowel sounds. Non-tender and non- distended. No evidence of peritonitis. EXTREMITITES: No clubbing, cyanosis, or edema. Objective - Vital Signs Vital signs: Vital Signs Temp 98.0 F 12/04/17 05:30 Pulse 92 12/04/17 05:30 Resp 17 12/04/17 05:30 BP 104/51 12/04/17 05:30 Pulse Ox 96 12/04/17 05:30 Intake & Output 12/03/17 12/04/17 12/04/17 18:59 06:59 18:59 Output Total 900 2000 450 Balance -900 -2000 -450 Output: Urine 900 2000 450 Other: Voiding Method Indwelling Catheter Indwelling Catheter Indwelling Catheter # Bowel Movements 0 - Labs CBC & Chem 7: 12/03/17 11:38 12/04/17 09:20 Labs: Abnormal Lab Results - Last 24 Hours (Table) 12/03/17 12/03/17 12/03/17 Range/Units 11:38 11:38 17:13 RBC 2.93 L (4.30-5.90) m/uL Hgb 9.5 L (13.0-17.5) gm/dL Hct 29.3 L (39.0-53.0) % BUN 53 H (9-20) mg/dL Creatinine 1.66 H (0.66-1.25) mg/dL Glucose (74-99) mg/dL POC Glucose (mg/dL) 103 H (75-99) mg/dL Calcium 8.1 L (8.4-10.2) mg/dL Magnesium 1.5 L (1.6-2.3) mg/dL 12/03/17 12/04/17 12/04/17 Range/Units 21:01 06:50 07:04 RBC (4.30-5.90) m/uL Hgb (13.0-17.5) gm/dL Hct (39.0-53.0) % BUN (9-20) mg/dL Creatinine (0.66-1.25) mg/dL Glucose (74-99) mg/dL POC Glucose (mg/dL) 129 H 62 L 57 L (75-99) mg/dL Calcium (8.4-10.2) mg/dL Magnesium (1.6-2.3) mg/dL 12/04/17 12/04/17 Range/Units 08:02 09:20 RBC (4.30-5.90) m/uL Hgb (13.0-17.5) gm/dL Hct (39.0-53.0) % BUN 42 H (9-20) mg/dL Creatinine 1.52 H (0.66-1.25) mg/dL Glucose 115 H (74-99) mg/dL POC Glucose (mg/dL) 109 H (75-99) mg/dL Calcium (8.4-10.2) mg/dL Magnesium 1.5 L (1.6-2.3) mg/dL Microbiology - Last 24 Hours (Table) 12/01/17 14:20 Urine Culture - Final Urine,Catheterized Assessment and Plan Plan: Assessment: 1. Nonoliguric acute kidney injury mostly prerenal due to poor oral intake and further worsened with the use of RAI inhibitor and diuretics. Improving with IV hydration. Creatinine was 3.4 on admission and is down to 1.5 to today. No evidence of hydronephrosis noted on renal ultrasound. Urinary retention also contributing factor. 2. Urinary retention status post Yi catheter placement and removal this admission. 3. Hyperkalemia secondary to acute kidney injury and metabolic acidosis. Improved. 4. Metabolic acidosis secondary to acute kidney injury. Resolved. 5. Hypernatremia secondary to lack of oral water intake. Improved. 6. Chronic kidney disease. Baseline creatinine appears to be in the range of 1.5-1.7. Etiology is diabetic kidney disease. 7. Insulin-dependent diabetes mellitus. 8. Pyuria maintained on antibiotics. Plan: Hep-Lock IV fluids. Encourage oral intake, including free water. Avoid nephrotoxic agents and hypotensive episodes. Diuretics and RAI inhibitor held. Repeat electrolytes in the morning.
[2017-12-04] MEDS ORDERED: MAGNESIUM SULFATE-D5W PMX 1 GM in DEXTROSE/WATER 1 100ML.BAG IVPB SCH (11:00)
[2017-12-04] MEDS: MULTIVITAMINS, THERA 1 EACH TAB PO SCH (11:16)
[2017-12-04] MEDS: ACETAMINOPHEN TAB 325 MG TAB PO SCH (11:16)
[2017-12-04 12:24] LABS: Glucose,Whole Blood 92 mg/dL (75-99)
[2017-12-04 14:08] VITALS: BP 103/78; PULSE 88; RESP 18; TEMP 99
== END 2017-12-04 15:58 | DRG 683 ==
LOC: EC 10:21 → 4MS4W 13:18
PROVIDERS: ADMIT Family Medicine; ATTEND Family Medicine
DX: N17.9 Acute kidney failure, unspecified (principal); E87.0 Hyperosmolality and hypernatremia; E87.2 Acidosis; N13.8 Other obstructive and reflux uropathy; N39.0 Urinary tract infection, site not specified; E11.22 Type 2 diabetes mellitus with diabetic chronic kidney disease; E78.5 Hyperlipidemia, unspecified; E86.0 Dehydration; E87.5 Hyperkalemia; F03.90 Unspecified dementia, unspecified severity, without behavioral disturbance, psychotic disturbance, mood disturbance, and anxiety; F48.2 Pseudobulbar affect; I12.9 Hypertensive chronic kidney disease with stage 1 through stage 4 chronic kidney disease, or unspecified chronic kidney disease; I48.91 Unspecified atrial fibrillation; K21.9 Gastro-esophageal reflux disease without esophagitis; N18.3 Chronic kidney disease, stage 3 (moderate); N32.0 Bladder-neck obstruction; I95.9 Hypotension, unspecified; E66.9 Obesity, unspecified; N40.1 Benign prostatic hyperplasia with lower urinary tract symptoms; N39.498 Other specified urinary incontinence; Z79.4 Long term (current) use of insulin; Z79.899 Other long term (current) drug therapy; I69.318 Other symptoms and signs involving cognitive functions following cerebral infarction; Z79.82 Long term (current) use of aspirin; Z79.891 Long term (current) use of opiate analgesic; Z68.35 Body mass index [BMI] 35.0-35.9, adult
CPT/HCPCS: 36415; 71046; 76770; 80048; 80053; 81001; 82140; 82550; 82553; 83735; 84443; 85025; 87086; 96361; 96365; 96366; 99285